=== PATIENT | female | born 1985 | race Caucasian/White ===

== ENCOUNTER 2017-03-28 15:37 | Emergency (ER) | payer OTHER ==
[2017-03-28 15:51] VITALS: TEMP 98.2; BMI 29.5
--- NOTE | 2017-03-28 16:29 | PDOC ---
History of Present Illness - General History Source: Patient, Old Records Exam Limitations: No Limitations - History of Present Illness Initial Comments: 03/28/17 17:13 The patient is a 31-year-old woman with a past medical history of asthma, migraine headaches and sinusitis who presents to the emergency department for further evaluation of a persistent headache for the past week. Patient admits she recalls that he injured her head, while feeding her cat and when she got up she accidentally bumped her head with the island of her kitchen. Since then, the patient has been experiencing intermittent sharp-throbbing electrical pain sensations (rated 8/10 at its worse) that is localized over the left parietal area. Due to her history of sinusitis, she followed up with her ENT who referred her to her Neurologist to rule out possible cluster headaches. Patient was evaluated by her Neurologist. She also recalls undergoing an MRI earlier this year, which was normal. Her Neurologist recommend Tegratol and Endosin. Patient reports compliance with her recommended medications and reports no relief. She called Dr. Yun, who recommended to take Endosin TID. Despite compliance, she still has a headache. She also notes associated symptoms of nausea for which she attributes it to the new prescribed medications She denies Fever, chills, dizziness, vision changes, speech difficulty, neck pain or stiffness, vomiting, or numbness, tingling, or weakness to the extremities. Allergies: No Known Drug Allergies Past Surgical History: Right ovary removal. Appendectomy Social History: Never smoked. No ETOH and recreational drug use. Neurologist: Dr. Christian Yun <Lashell Morrison - Last Filed: 03/28/17 18:43> <Maine Vaca - Last Filed: 03/28/17 19:15> - General Chief Complaint: Headache Stated Complaint: HEADACHE Time Seen by Provider: 03/28/17 16:28 Past History <Lashell Morrison - Last Filed: 03/28/17 18:43> - Past Medical History Asthma: Yes Other medical history: headache, sinusitis - Surgical History Abdominal Surgery: Yes (rt ovary removal) Appendectomy: Yes - Psycho/Social/Smoking Cessation Hx Anxiety: No Suicidal Ideation: No Smoking History: Never smoked Have you smoked in the past 12 months: No Information on smoking cessation initiated: No Hx Alcohol Use: No Drug/Substance Use Hx: No Substance Use Type: None <Miane Vaca - Last Filed: 03/28/17 19:15> - Past Medical History Allergies/Adverse Reactions: Allergies Allergy/AdvReac Type Severity Reaction Status Date / Time No Known Allergies Allergy Verified 03/28/17 15:45 Home Medications: Ambulatory Orders Carbamazepine [Tegretol -] 200 mg PO BID 03/28/17 Indomethacin 50 mg PO BID 03/28/17 Methylprednisolone [Medrol Dose Kevin] 4 mg PO ASDIR #21 tablet 03/28/17 Pantoprazole Sodium [Protonix] 40 mg PO DAILY 03/28/17 Review of Systems - Review of Systems Able to Perform ROS?: Yes Comments:: 03/28/17 17:15 Constitutional - Pt denies Fever, Chills, weakness, HEENT: denies vision changes, sore throat Respiratory: Denies cough, sob, hemoptysis Cardiac: denies chest pain, palpitations, light headedness, leg swelling Abd/GI: +Nausea. denies abd pain,vomiting, blood per rectum, melena, diarrhea : denies dysuria, frequency, discharge Musculoskeletal - denies back pain, joint swelling skin - denies bruising, erythema, rash neurological: +Headache denies numbness, focal weakness, tingling, ataxia, weakness hematologic: denies anemia, easy bruising, easy bleeding <Lashell Morrison - Last Filed: 03/28/17 18:43> *Physical Exam - Vital Signs Last Vital Signs Temp Pulse Resp BP Pulse Ox 98.2 F 70 18 118/69 100 03/28/17 15:47 03/28/17 15:47 03/28/17 15:47 03/28/17 15:47 03/28/17 15:47 - Physical Exam Comments: 03/28/17 17:15 GENERAL: The patient is awake, alert, and fully oriented, Nontoxic - in no acute distress. HEAD: Normocephalic, atraumatic. EYES: extraocular movements intact, sclera anicteric, conjunctiva clear. ENT: Normal voice, moist mucous membranes. NECK: Normal range of motion, supple without lymphadenopathy, JVD, or masses. LUNGS: Breath sounds equal, clear to auscultation bilaterally. No wheezes, no crackles, no rales. HEART: Regular rate and rhythm, normal S1 and S2 without murmur, rub or gallop. ABDOMEN: Soft, nontender, normoactive bowel sounds. No guarding, no rebound. No masses. EXTREMITIES: Normal range of motion, no edema. No clubbing or cyanosis. No cords , erythema, or tenderness. NEUROLOGICAL: Fully Oriented, Alert, Normal Mood/Affect, Motor Strength 5/5. No facial assymetry, Normal speech SKIN: Warm, Dry, normal turgor, no rashes or lesions noted. <Lashell Morrison - Last Filed: 03/28/17 18:43> - Vital Signs Last Vital Signs Temp Pulse Resp BP Pulse Ox 98.2 F 70 18 118/69 100 03/28/17 15:47 03/28/17 15:47 03/28/17 15:47 03/28/17 15:47 03/28/17 15:47 <Maine Vaca - Last Filed: 03/28/17 19:15> ED Treatment Course - LABORATORY CBC & Chemistry Diagram: 03/28/17 16:50 03/28/17 16:45 - ADDITIONAL ORDERS Additional order review: Laboratory Results 03/28/17 16:45 Urine HCG, Qual Negative 03/28/17 16:50 RBC 4.31 MCV 82.3 MCHC 32.4 RDW 13.8 MPV 8.3 Neutrophils % 54.4 Lymphocytes % 37.3 Monocytes % 5.3 Eosinophils % 2.0 Basophils % 1.0 - RADIOLOGY Radiograph Interpretation: 03/28/17 18:44 Preliminary report by Imaging Agriculture Manager EXAM: CT head without contrast IMPRESSION: 1. There is no evidence of an acute intracranial process, intracranial hemorrhage or mass effect. 2. The ventricles are normal size. 3. The visualized portions of the orbits, paranasal and mastoid sinuses are notable for moderate left maxillary and ethmoid sinus mucosal thickening and evidence of previous sinonasal surgery. 4. No evidence of fracture. <Lashell Morrison - Last Filed: 03/28/17 18:43> - LABORATORY CBC & Chemistry Diagram: 03/28/17 16:50 03/28/17 16:45 <Maine Vaca - Last Filed: 03/28/17 19:15> Medical Decision Making - Medical Decision Making 04/29/17 16:29 I, Dr. Maine Vaca, attest that the scribes documentation that appears above has been prepared under my direction and personally reviewed by me. I confirmed that the note above accurately reflects all work, treatment, procedures, and medical decision-making performed by me. 03/28/17 18:04 Pt's labs noted, esr added to todays labs,ct of head ordered to complete the work up,Dr. Vogel of neurology was here in [place] and requested that pt is discharged home on a medrol dose pack with out pt f/u in the office. Pt was pain free at the time of my exam 03/28/17 18:10 03/28/17 19:[address] Danielson to reevaluate after pt has pain block performed by Dr Vogel of neurology here in [place] to treat headache <Maine Vaca - Last Filed: 03/28/17 19:15> *DC/Admit/Observation/Transfer - Attestations Scribe Attestion: 03/28/17 17:15 Documentation prepared by Lashell Morrison, acting as medical records technician for Maine Vaca DO. <Lashell Morrison - Last Filed: 03/28/17 18:43> - Discharge Dispostion Admit: No <Maine Vaca - Last Filed: 03/28/17 19:15> Diagnosis at time of Disposition: Headache - Discharge Dispostion Condition at time of disposition: Stable - Prescriptions Prescriptions: Methylprednisolone [Medrol Dose Kevin] 4 mg PO ASDIR #21 tablet - Referrals Referrals: STAFF,NOT ON [Primary Care Provider] -
[2017-03-28 17:01] LABS: MCH 26.7 pg (25.7-33.7); MCHC 32.4 g/dl (32.0-36.0); MEAN CELL VOLUME 82.3 fl (80-96); MEAN PLT VOLUME 8.3 fl (7.5-11.1); NEUTROPHILS 54.4 % (42.8-82.8); PLATELET COUNT 229 K/MM3 (134-434); RDW 13.8 % (11.6-15.6); WHITE BLOOD COUNT 5.6 K/mm3 (4.0-10.0)
[2017-03-28 17:24] LABS: ALBUMIN 3.5 g/dl (3.4-5.0); ANION GAP 9 (8-16); BILIRUBIN,TOTAL 0.2 mg/dL (0.2-1.0); CALCIUM 8.8 mg/dL (8.5-10.1); CO2 26 mmol/L (21-32); CREATININE 0.7 mg/dL (0.55-1.02); GLUCOSE,RANDOM 86 mg/dL (74-106); SGOT/AST 14 U/L (15-37); SGPT/ALT 16 U/L (12-78)
[2017-03-28 17:25] LABS: ALK PHOS 75 U/L (45-117)
[2017-03-28] MEDS ORDERED: methylPREDNISolone NA SUCC 40 MG/1 ML VIAL IVPB ONE (18:22)
[2017-03-28] MEDS ORDERED: methylPREDNISolone NA SUCC 125 MG/2 ML VIAL ONE (18:58)
[2017-03-28] MEDS ORDERED: DEXAMETHASONE SOD PHOSPHATE 10 MG/1 ML VIAL IM ONE ×2 (19:15→19:22)
[2017-03-28] MEDS ORDERED: LIDOCAINE HCL 2% (20ML MULTI-DOSE VIAL) NR ONE (19:15)
[2017-03-28] MEDS ORDERED: LIDOCAINE HCL 2% (50ML VIAL) SQ ONE (19:15)
[2017-03-28] MEDS ORDERED: DEXAMETHASONE SOD PHOSPHATE 10 MG/1 ML VIAL ONE (19:20)
--- NOTE | 2017-03-28 19:42 | PDOC ---
*Physical Exam - Vital Signs Last Vital Signs Temp Pulse Resp BP Pulse Ox 98.2 F 70 18 118/69 100 03/28/17 15:47 03/28/17 15:47 03/28/17 15:47 03/28/17 15:47 03/28/17 15:47 ED Treatment Course - LABORATORY CBC & Chemistry Diagram: 03/28/17 16:50 03/28/17 16:45 - ADDITIONAL ORDERS Additional order review: Laboratory Results 03/28/17 03/28/17 16:45 16:45 Sodium 141 Potassium 3.9 Chloride 106 Carbon Dioxide 26 Anion Gap 9 BUN 13 Creatinine 0.7 Creat Clearance w eGFR > 60 Random Glucose 86 Calcium 8.8 Total Bilirubin 0.2 AST 14 L ALT 16 Alkaline Phosphatase 75 Total Protein 7.0 Albumin 3.5 Urine HCG, Qual Negative 03/28/17 16:50 RBC 4.31 MCV 82.3 MCHC 32.4 RDW 13.8 MPV 8.3 Neutrophils % 54.4 Lymphocytes % 37.3 Monocytes % 5.3 Eosinophils % 2.0 Basophils % 1.0 - Medications Given in the ED: ED Medications Discontinued Medications Generic Name Dose Route Start Last Admin Trade Name Freq PRN Reason Stop Dose Admin Methylprednisolone Sodium Succinate 125 mg 03/28/17 18:22 03/28/17 19:02 Solu-Medrol - IVPB 03/28/17 18:23 125 mg ONCE ONE Administration Medical Decision Making - Medical Decision Making 03/28/17 22:29 I received patient on signout. She was seen and evaluated by Dr. Vaca. Now simply awaiting point injection of irritated nerve by the neurologist, and I am to discharge patient. Neuro Dr. Vogel is at the bedside. Pt will follow up with him. *DC/Admit/Observation/Transfer Diagnosis at time of Disposition: Head ache - Discharge Dispostion Disposition: HOME Condition at time of disposition: Stable Admit: No - Prescriptions Prescriptions: Methylprednisolone [Medrol Dose Kevin] 4 mg PO ASDIR #21 tablet - Referrals Referrals: STAFF,NOT ON [Primary Care Provider] - Mahamed Vogel MD [Staff Physician] - - Patient Instructions Printed Discharge Instructions: DI for Post-traumatic Headache, DI for Headache - Post Discharge Activity
[2017-03-28 19:59] VITALS: BP 116/80; PULSE 74
--- NOTE | 2017-03-28 20:11 | CON.NEURO ---
Consult Consult Specialty:: Neurology Referred by:: Headache - History of Present Illness Chief Complaint: left occipital/parietal headache. History of Present Illness: Pt, rteports 2 months ago began having headaches- bilateral maxillary/ retroorbital/frontal regions- was treated for migraine and sinusitis. 7 days ago hit her head while getting up from seatd position on a shelf, a day later started having seconds to 5 minutes of lancinating pain in left perivertex region without any accompaniments. Pain is secere, given Indomethacin and tegretol by Dr. Yun 3 daysw ago-of no help. - Alcohol/Substance Use Hx Alcohol Use: No - Smoking History Smoking history: Never smoked Have you smoked in the past 12 months: No Home Medications - Allergies Allergies/Adverse Reactions: Allergies Allergy/AdvReac Type Severity Reaction Status Date / Time No Known Allergies Allergy Verified 03/28/17 15:45 - Home Medications Home Medications: Ambulatory Orders Carbamazepine [Tegretol -] 200 mg PO BID 03/28/17 Indomethacin 50 mg PO BID 03/28/17 Methylprednisolone [Medrol Dose Kevin] 4 mg PO ASDIR #21 tablet 03/28/17 Pantoprazole Sodium [Protonix] 40 mg PO DAILY 03/28/17 Physical Exam-Neuro Vital Signs: Vital Signs Temperature 98.2 F 03/28/17 15:47 Pulse Rate 74 03/28/17 19:59 Respiratory Rate 18 03/28/17 19:59 Blood Pressure 116/80 03/28/17 19:59 O2 Sat by Pulse Oximetry (%) 99 03/28/17 19:59 Labs: CBC, BMP 03/28/17 16:50 03/28/17 16:45 NIH Stroke Scale - Total Score NIH Stroke Scale Score: 0 Imaging - Results Chest X-ray: Image Reviewed (Reported normal but ??? small ventricles to my review.) Assessment/Plan 1) Acute, episodic headache- likely greater occipital neuralgia-will give left greater occipital nerve block Procedure note- Consent obtained, patient given 2% lidocaine 1 cc and 10mg(1cc) Dexamethasone in left ALEYDA region in 3 different sites. 2) Will d/w Dr. Yun re tap to measureOP. as outpt.
== END 2017-03-28 20:00 | disposition home or self-care (01) ==
LOC: JER 15:37
PROC: 3E0233Z Introduction of Anti-inflammatory into Muscle, Percutaneous Approach (ICD-10-PCS; principal; 2017-03-28)
PROC: 3E0333Z Introduction of Anti-inflammatory into Peripheral Vein, Percutaneous Approach (ICD-10-PCS; 2017-03-28)
PROC: 3E023BZ Introduction of Anesthetic Agent into Muscle, Percutaneous Approach (ICD-10-PCS; 2017-03-28)
DX: G44.301 Post-traumatic headache, unspecified, intractable (principal); W22.8XXA Striking against or struck by other objects, initial encounter; Y93.89 Activity, other specified; Y92.030 Kitchen in apartment as the place of occurrence of the external cause; G43.909 Migraine, unspecified, not intractable, without status migrainosus; J45.909 Unspecified asthma, uncomplicated
CPT/HCPCS: 36415; 70450-TC; 80053; 84703; 85025; 85651; 99282-25